=== PATIENT | male | born 1980 | race Two or more races ===

== ENCOUNTER 2023-06-17 08:25 | Inpatient (IN) | payer MEDICAID ==
[~2023-06-17] VITALS: Ht 177.8 cm; Wt 106.8 kg
[2023-06-17] MEDS ORDERED: METOCLOPRAMIDE HCL 5MG/ml INJ 2ml VIAL IV ONE (09:15)
[2023-06-17] MEDS ORDERED: SODIUM CHLORIDE 0.9% 1,000 ML IV ONE ×2 (09:15→10:30)
[2023-06-17 09:40] LABS: Basophils # (auto) 0 10 ^3/uL (0-0.2); Basophils % (auto) 0.3 % (0.0-2.0); Eosinophils # (auto) 0 10 ^3/uL (0-0.8); Eosinophils % (auto) 0.3 % (0.0-7.0); Hematocrit 51.4 % (41.0-53.0); Hemoglobin 17.1 g/dL (13.5-17.5); Lymphocytes # (auto) 1.6 10 ^3/uL (0.4-5.4); Lymphocytes % (auto) 13.5 % (10.0-50.0); Mean Corpuscular Hemoglobin 29.8 pg (28.0-32.0); Mean Corpuscular Hgb Conc. 33.2 g/dL (32.0-36.0); Monocytes # (auto) 0.7 10 ^3/uL (0-1.3); Monocytes % (auto) 5.9 % (0.0-12.0); Neutrophils # (auto) 9.4 10 ^3/uL (1.6-8.6); Nucleated Red Blood Cells % 0.2 %; Red Blood Cells 5.71 10^6/uL (4.5-5.90); Red Cell Distribution Width 13.1 % (11.8-14.3); White Blood Cell 11.7 10^3/uL (4.4-10.8)
[2023-06-17 10:10] LABS: Alanine Aminotransferase 89 U/L (7-40); Albumin 5.5 g/dL (3.2-4.8); Alkaline Phosphatase 93 U/L (46-116); Anion Gap 22 (5-15); Aspartate Aminotransferase 45 U/L (13-40); BUN/Creatinine Ratio 11.3 (10.0-20.0); Bilirubin, Total 0.9 mg/dL (0.2-1.0); Blood Urea Nitrogen 17 mg/dL (9-23); Calcium 10.2 mg/dL (8.5-10.1); Carbon Dioxide 12 mmol/L (20-30); Chloride 95 mmol/L (98-107); Glucose 377 mg/dL (74-106); Potassium 5.2 mmol/L (3.5-5.1); Sodium 129 mmol/L (136-145); Total Protein 8.2 g/dL (5.7-8.2)
[2023-06-17 10:22] LABS: Urine Epithelial Cast None Seen /hpf (<5)
[2023-06-17] MEDS ORDERED: InsuLIN REG 1unit/0.01ml Soln (100units/ml) IV ONE (10:45)
[2023-06-17] MEDS ORDERED: INSULIN LANTUS (GLARGINE) 1 /0.01ml (100units/ml) SC ONE (10:45)
[2023-06-17] MEDS ORDERED: DEXTROSE (50%) 50ML SYRG IV PRN ×2 (10:45→12:30)
[2023-06-17 11:07] LABS: Urine Bacteria NONE SEEN /hpf (None Seen); Urine Blood TRACE /uL (Negative); Urine Clarity Clear (Clear); Urine Color Yellow (Yellow); Urine Protein, UAD 2+ (Negative); Urine Specific Gravity 1.027 (1.001-1.035); Urine Urobilinogen Normal (Negative); Urine WBC 2 /hpf (0 - 3); Urine pH 5.5 (5.0-8.0)
[2023-06-17 11:30] VITALS: PULSE 119; RESP 20; O2SAT 98
[2023-06-17 11:35] LABS: Base Excess -16.5 mmol/L (-2.0-2.0)
[2023-06-17] MEDS: INSULIN DRIP 100 UNIT/100ML 100 ML IV SCH (11:58)
[2023-06-17] MEDS ORDERED: ACCU-CHEK COMFORT CURVE STRIP VI SCH (12:00)
[2023-06-17] MEDS ORDERED: ONDANSETRON HCL 4 MG/2 ML VIAL IV PRN (12:30)
[2023-06-17] MEDS ORDERED: MORPHINE SULFATE INJ 2 MG/ml SYRG IV PRN (12:30)
[2023-06-17] MEDS ORDERED: DOCUSATE SOD 100 MG CAP PO PRN (12:30)
[2023-06-17 12:54] LABS: Amphetamine Screen, Urine Neg (NEGATIVE); Barbiturate Scree,Urine Neg (NEGATIVE); Benzodiazephine Screen, Urine Neg (NEGATIVE); Cannabinoid Screen, Urine Pos (NEGATIVE); Cocaine Screen, Urine Neg (NEGATIVE); Creatinine, Urine 74.23 mg/dL (30.0-125.0); Opiate Scree,Urine Neg (NEGATIVE); Phencyclidine Screen, Urine Neg (NEGATIVE)
[2023-06-17 13:30] LABS: Chloride 103 mmol/L (98-107); Sodium 133 mmol/L (136-145)
[2023-06-17 13:31] LABS: Anion Gap 19 (5-15); Calcium 9.1 mg/dL (8.7-10.4); Carbon Dioxide 11 mmol/L (20-30)
[2023-06-17 13:32] LABS: BUN/Creatinine Ratio 7.6 (10.0-20.0); Blood Urea Nitrogen 10 mg/dL (9-23); Glucose 283 mg/dL (74-106)
[2023-06-17] MEDS: ACCU-CHEK COMFORT CURVE STRIP VI SCH ×7 (13:34→22:31)
[2023-06-17] MEDS: SODIUM CHLORIDE 0.9% 1,000 ML IV SCH ×4 (14:30→21:48)
[2023-06-17] MEDS ORDERED: SODIUM CHLORIDE 0.9% 1,000 ML IV SCH (16:30)
[2023-06-17] MEDS: METOCLOPRAMIDE HCL 5MG/ml INJ 2ml VIAL IV SCH (18:18)
[2023-06-17 18:31] LABS: Chloride 108 mmol/L (98-107); Potassium 4.2 mmol/L (3.5-5.1); Sodium 135 mmol/L (136-145)
[2023-06-17 18:32] LABS: Anion Gap 17.00001 (5-15); Calcium 8.8 mg/dL (8.7-10.4)
[2023-06-17 18:37] LABS: BUN/Creatinine Ratio 8.8 (10.0-20.0); Blood Urea Nitrogen 9 mg/dL (9-23); Glucose 241 mg/dL (74-106)
[2023-06-17 19:08] LABS: Carbon Dioxide < 10 mmol/L (20-30)
[2023-06-17] MEDS ORDERED: SODIUM BICARBONATE 8.4 % INJ 50ML VIAL IV ONE (19:15)
[2023-06-17 19:24] LABS: Base Excess -13.8 mmol/L (-2.0-2.0)
[2023-06-17 19:30] VITALS: PULSE 124; RESP 21; O2SAT 97
[2023-06-17] MEDS: D5W/SOD CHLO 0.9% 1,000 ML IV SCH (19:50)
[2023-06-17] MEDS: hydrALAZINE HCL 20 MG/ML VL IV PRN (21:11)
[2023-06-18] MEDS: ACCU-CHEK COMFORT CURVE STRIP VI SCH ×16 (00:04→22:34)
[2023-06-18] MEDS: METOCLOPRAMIDE HCL 5MG/ml INJ 2ml VIAL IV SCH ×4 (00:08→17:58)
[2023-06-18 00:40] LABS: Anion Gap 15.00001 (5-15); Chloride 117 mmol/L (98-107); Potassium 3.4 mmol/L (3.5-5.1); Sodium 142 mmol/L (136-145)
[2023-06-18 00:41] LABS: Calcium 6.8 mg/dL (8.7-10.4)
[2023-06-18 00:46] LABS: BUN/Creatinine Ratio 7.8 (10.0-20.0); Blood Urea Nitrogen 6 mg/dL (9-23); Glucose 290 mg/dL (74-106)
[2023-06-18 00:47] LABS: Carbon Dioxide < 10 mmol/L (20-30)
[2023-06-18] MEDS: SODIUM CHLORIDE 0.9% 1,000 ML IV SCH ×3 (04:26→21:35)
[2023-06-18] MEDS: D5W/SOD CHLO 0.9% 1,000 ML IV SCH (05:28)
[2023-06-18 05:42] LABS: Hematocrit 47.9 % (41.0-53.0); Hemoglobin 16.2 g/dL (13.5-17.5); Mean Corpuscular Hemoglobin 29.9 pg (28.0-32.0); Mean Corpuscular Hgb Conc. 33.9 g/dL (32.0-36.0); Mean Corpuscular Volume 88.3 fL (80.0-100.0); Red Blood Cells 5.42 10^6/uL (4.5-5.90); Red Cell Distribution Width 13.3 % (11.8-14.3); White Blood Cell 13.1 10^3/uL (4.4-10.8)
[2023-06-18 05:47] LABS: Basophils % (manual) 0 (0.0-2.0); Blast Cells 0; Eosinophils % (manual) 0 (0-7); Metamyelocytes % 0; Reactive Lymphocytes 0
[2023-06-18 05:50] LABS: Alanine Aminotransferase 59 U/L (7-40); Albumin 4.7 g/dL (3.2-4.8); Alkaline Phosphatase 74 U/L (46-116); Anion Gap 17.00001 (5-15); Aspartate Aminotransferase 24 U/L (13-40); BUN/Creatinine Ratio 8.6 (10.0-20.0); Blood Urea Nitrogen 8 mg/dL (9-23); Calcium 8.9 mg/dL (8.7-10.4); Chloride 112 mmol/L (98-107); Glucose 219 mg/dL (74-106); Potassium 3.8 mmol/L (3.5-5.1); Sodium 139 mmol/L (136-145)
[2023-06-18 05:51] LABS: Bilirubin, Total 0.9 mg/dL (0.2-1.0); Total Protein 7.5 g/dL (5.7-8.2)
[2023-06-18 06:01] LABS: Carbon Dioxide < 10 mmol/L (20-30)
[2023-06-18 08:00] VITALS: PULSE 115; RESP 22; O2SAT 98
[2023-06-18] MEDS: PANTOPRAZOLE 40 MG/10 ML VIAL INJ IV SCH (09:39)
[2023-06-18] MEDS: INSULIN LANTUS (GLARGINE) 1 /0.01ml (100units/ml) SC SCH (09:40)
[2023-06-18] MEDS: hydrALAZINE HCL 20 MG/ML VL IV PRN (09:41)
[2023-06-18] MEDS ORDERED: cefTRIAXone 1GM/50ML D5W 50 ML IV ONE (10:45)
[2023-06-18] MEDS: INSULIN DRIP 100 UNIT/100ML 100 ML IV SCH (10:56)
[2023-06-18 11:08] LABS: Lipase 41 U/L (12-53)
[2023-06-18 11:09] LABS: Amylase 45 U/L (30-118)
[2023-06-18 14:10] LABS: Band Neutrophils % (manual) 4; Lymphocytes % (manual) 8 (10.0-50.0); Monocytes % (manual) 7 (0-12); Myelocytes % 1; Promyelocytes % 1
[2023-06-18 14:11] LABS: Platelet Estimate Adequate
[2023-06-18] MEDS ORDERED: LABETALOL HCL 5 MG/ML 4ML SYRINGE IV PRN (18:45)
[2023-06-18 19:20] VITALS: PULSE 108; RESP 20; O2SAT 99
[2023-06-18 21:21] LABS: Chloride 114 mmol/L (98-107); Potassium 4.1 mmol/L (3.5-5.1); Sodium 140 mmol/L (136-145)
[2023-06-18 21:22] LABS: Anion Gap 13 (5-15); Calcium 8.8 mg/dL (8.7-10.4); Carbon Dioxide 13 mmol/L (20-30)
[2023-06-18] MEDS: METOPROLOL TARTRATE 25 MG TAB PO SCH (21:23)
[2023-06-18 21:27] LABS: BUN/Creatinine Ratio 5.8 (10.0-20.0); Blood Urea Nitrogen 5 mg/dL (9-23); Glucose 158 mg/dL (74-106)
[2023-06-19] MEDS: ACCU-CHEK COMFORT CURVE STRIP VI SCH ×8 (00:06→16:29)
[2023-06-19] MEDS: SODIUM CHLORIDE 0.9% 1,000 ML IV SCH (03:50)
[2023-06-19] MEDS: METOCLOPRAMIDE HCL 5MG/ml INJ 2ml VIAL IV SCH ×3 (06:00→11:53)
[2023-06-19 06:01] LABS: Basophils # (auto) 0 10 ^3/uL (0-0.2); Basophils % (auto) 0.2 % (0.0-2.0); Eosinophils # (auto) 0 10 ^3/uL (0-0.8); Eosinophils % (auto) 0.4 % (0.0-7.0); Hematocrit 41.3 % (41.0-53.0); Hemoglobin 13.8 g/dL (13.5-17.5); Lymphocytes # (auto) 1.4 10 ^3/uL (0.4-5.4); Lymphocytes % (auto) 14.9 % (10.0-50.0); Mean Corpuscular Hemoglobin 30.4 pg (28.0-32.0); Mean Corpuscular Hgb Conc. 33.3 g/dL (32.0-36.0); Mean Corpuscular Volume 91.3 fL (80.0-100.0); Monocytes # (auto) 0.8 10 ^3/uL (0-1.3); Monocytes % (auto) 8.7 % (0.0-12.0); Neutrophils % (auto) 75.8 % (37.0-80.0); Nucleated Red Blood Cells % 0.1 %; Red Blood Cells 4.52 10^6/uL (4.5-5.90); Red Cell Distribution Width 13.9 % (11.8-14.3); White Blood Cell 9.3 10^3/uL (4.4-10.8)
[2023-06-19 06:12] LABS: Alanine Aminotransferase 46 U/L (7-40); Albumin 3.5 g/dL (3.2-4.8); Alkaline Phosphatase 57 U/L (46-116); Anion Gap 14 (5-15); Aspartate Aminotransferase 35 U/L (13-40); Calcium 7.6 mg/dL (8.7-10.4); Carbon Dioxide 12 mmol/L (20-30); Chloride 116 mmol/L (98-107); Glucose 160 mg/dL (74-106); Magnesium 1.8 mg/dL (1.6-2.6); Potassium 3.3 mmol/L (3.5-5.1); Sodium 142 mmol/L (136-145)
[2023-06-19 06:13] LABS: Bilirubin, Total 0.9 mg/dL (0.2-1.0); Total Protein 5.7 g/dL (5.7-8.2)
[2023-06-19 06:19] LABS: Blood Urea Nitrogen < 5 mg/dL (9-23)
[2023-06-19] MEDS ORDERED: DEXTROSE (50%) 50ML SYRG IV PRN (07:30)
[2023-06-19 07:52] VITALS: PULSE 83; RESP 17; O2SAT 98
[2023-06-19 08:00] VITALS: TEMP 98.9
[2023-06-19] MEDS: InsuLIN REG 1unit/0.01ml Soln (100units/ml) SC SCH ×3 (08:19→16:32)
[2023-06-19] MEDS ORDERED: POTASSIUM EFFERVESENT TAB 25 MEQ PO ONE (09:00)
[2023-06-19] MEDS ORDERED: cefTRIAXone 1GM/50ML D5W 50 ML IV SCH (09:00)
[2023-06-19] MEDS: PANTOPRAZOLE 40 MG/10 ML VIAL INJ IV SCH (09:41)
[2023-06-19] MEDS: METOPROLOL TARTRATE 25 MG TAB PO SCH (09:42)
[2023-06-19] MEDS: INSULIN LANTUS (GLARGINE) 1 /0.01ml (100units/ml) SC SCH (09:51)
[2023-06-19] MEDS ORDERED: METF-370 PO (10:19)
[2023-06-19] MEDS ORDERED: INSU1INJ26 SC (10:19)
[2023-06-19 13:44] VITALS: BP 159/95; PULSE 86; PULSE 95; RESP 18; O2SAT 96
== END 2023-06-19 17:27 | disposition home or self-care (01) | DRG 420 ==
LOC: ER 08:25 → TELE 12:26 → TELE-WESTW 06-19 12:31
PROVIDERS: ADMIT Internal Medicine Pulmonary Disease; ATTEND Emergency Medicine
DX: E11.10 Type 2 diabetes mellitus with ketoacidosis without coma (principal); N17.0 Acute kidney failure with tubular necrosis; E87.1 Hypo-osmolality and hyponatremia; E86.0 Dehydration; I10 Essential (primary) hypertension; R80.9 Proteinuria, unspecified; F12.10 Cannabis abuse, uncomplicated; R00.0 Tachycardia, unspecified; Z79.4 Long term (current) use of insulin; E87.21 Acute metabolic acidosis
CPT/HCPCS: 36415; 36600; 71045; 74176; 80048; 80053; 80307; 81001; 82010; 82150; 82570; 82805; 82962; 83036; 83690; 83735; 83930; 83935; 84100; 84300; 84443; 85007; 85025; 85027; 87086; 96361; 96374; 96375; C9113; G0378; J1815; J2405

== ENCOUNTER 2023-06-24 18:02 | Inpatient (IN) | payer MEDICAID ==
[~2023-06-24] VITALS: Ht 177.8 cm; Wt 101.2 kg
[~2023-06-24 18:02] MED LIST: INSU1INJ26 SC; METF-370 PO
[2023-06-24] MEDS: SODIUM CHLORIDE 0.9% 1,000 ML IV ONE (18:30)
[2023-06-24 18:42] VITALS: PULSE 122; RESP 24; O2SAT 99
[2023-06-24] MEDS: SODIUM CHLORIDE 0.9% 3,200 ML IV ONE (18:42)
[2023-06-24] MEDS: VANCOMYCIN 1GM/200ML 200 ML IV ONE (19:10)
[2023-06-24 19:19] LABS: Hematocrit 40.1 % (41.0-53.0); Hemoglobin 13.6 g/dL (13.5-17.5); Mean Corpuscular Hemoglobin 29.7 pg (28.0-32.0); Mean Corpuscular Volume 87.5 fL (80.0-100.0); Red Blood Cells 4.58 10^6/uL (4.5-5.90); White Blood Cell 19.7 10^3/uL (4.4-10.8)
[2023-06-24 19:29] LABS: Basophils % (manual) 0 (0.0-2.0); Blast Cells 0; Eosinophils % (manual) 0 (0-7); Metamyelocytes % 0; Myelocytes % 0; Promyelocytes % 0; Reactive Lymphocytes 0
[2023-06-24 19:30] VITALS: PULSE 111; RESP 14; O2SAT 99
[2023-06-24 19:34] LABS: Alanine Aminotransferase 35 U/L (7-40); Albumin 4.1 g/dL (3.2-4.8); Alkaline Phosphatase 90 U/L (46-116); Anion Gap 16 (5-15); Aspartate Aminotransferase 21 U/L (13-40); BUN/Creatinine Ratio 9.5 (10.0-20.0); Blood Urea Nitrogen 16 mg/dL (9-23); Calcium 9.3 mg/dL (8.5-10.1); Carbon Dioxide 20 mmol/L (20-30); Potassium 3.2 mmol/L (3.5-5.1)
[2023-06-24 19:35] LABS: Chloride 93 mmol/L (98-107); Glucose 310 mg/dL (74-106); Sodium 129 mmol/L (136-145)
[2023-06-24 19:38] LABS: Lactic Acid w/Reflex 3.3 mmol/L (0.4-2.0)
[2023-06-24 19:49] LABS: Band Neutrophils % (manual) 26; Lymphocytes % (manual) 9 (10.0-50.0); Monocytes % (manual) 5 (0-12)
[2023-06-24] MEDS: PIPERACILLIN-TAZOB 3.375GM 100 ML IV ONE (19:49)
[2023-06-24 19:50] LABS: Platelet Estimate Adequate
[2023-06-24] MEDS: ACETAMINOPHEN 325 MG TAB PO ONE (19:55)
[2023-06-24] MEDS: InsuLIN REG 1unit/0.01ml Soln (100units/ml) IV ONE (20:14)
[2023-06-24] MEDS ORDERED: VANCOMYCIN PER PHARMACY 0 MG IV SCH ×2 (21:15→21:30)
[2023-06-24] MEDS ORDERED: DEXTROSE (50%) 50ML SYRG IV PRN (21:15)
[2023-06-24] MEDS ORDERED: ONDANSETRON HCL 4 MG/2 ML VIAL IV PRN (21:15)
[2023-06-24] MEDS ORDERED: DOCUSATE SOD 100 MG CAP PO PRN (21:15)
[2023-06-24] MEDS: SODIUM CHLORIDE 0.9% 1,000 ML IV SCH (21:27)
[2023-06-24] MEDS: PIPERACILLIN-TAZOB 3.375GM 100 ML IV SCH (21:27)
[2023-06-24] MEDS ORDERED: NITROGLYCERIN 0.4 MG SL TAB SL PRN (23:30)
[2023-06-24] MEDS ORDERED: MORPHINE SULFATE INJ 2 MG/ml SYRG IV PRN (23:30)
[2023-06-25] VITALS (8 sets, daily range): BP systolic 96–130; BP diastolic 54–67; PULSE 71–123; RESP 18–21; TEMP 37.5; O2SAT 93–97
[2023-06-25] MEDS: InsuLIN REG 1unit/0.01ml Soln (100units/ml) SC SCH (00:21)
[2023-06-25] MEDS: ACCU-CHEK COMFORT CURVE STRIP VI SCH (00:22)
[2023-06-25] MEDS ORDERED: LISI20TA56 PO (03:12)
[2023-06-25] MEDS ORDERED: CHOL20007 PO (03:12)
[2023-06-25] MEDS: VANCOMYCIN 1GM/200ML 200 ML IV SCH (10:00)
[2023-06-25] MEDS: HEPARIN SODIUM (PORCINE) 5000 UNITS/ML 1ML VIAL SC SCH (10:00)
[2023-06-25] MEDS: HYDROcodone-ACET 5/325MG TAB PO PRN (10:20)
[2023-06-25 11:26] LABS: Hematocrit 35.1 % (41.0-53.0); Hemoglobin 11.9 g/dL (13.5-17.5); Mean Corpuscular Hemoglobin 29.6 pg (28.0-32.0); Mean Corpuscular Volume 87.3 fL (80.0-100.0); Red Blood Cells 4.02 10^6/uL (4.5-5.90); Red Cell Distribution Width 13.1 % (11.8-14.3); White Blood Cell 15.2 10^3/uL (4.4-10.8)
[2023-06-25 11:38] LABS: Alanine Aminotransferase 39 U/L (7-40); Albumin 3.3 g/dL (3.2-4.8); Alkaline Phosphatase 76 U/L (46-116); Anion Gap 10 (5-15); Aspartate Aminotransferase 42 U/L (13-40); Bilirubin, Total 0.5 mg/dL (0.2-1.0); Blood Urea Nitrogen 8 mg/dL (9-23); Calcium 8.2 mg/dL (8.5-10.1); Carbon Dioxide 22 mmol/L (20-30); Chloride 96 mmol/L (98-107); Glucose 292 mg/dL (74-106); Sodium 128 mmol/L (136-145); Total Protein 5.7 g/dL (5.7-8.2)
[2023-06-25 11:42] LABS: Basophils % (manual) 0 (0.0-2.0); Blast Cells 0; Eosinophils % (manual) 0 (0-7); Metamyelocytes % 0; Myelocytes % 0; Promyelocytes % 0; Reactive Lymphocytes 0
[2023-06-25 11:45] LABS: Potassium 2.3 mmol/L (3.5-5.1)
[2023-06-25 12:43] LABS: Band Neutrophils % (manual) 11; Lymphocytes % (manual) 5 (10.0-50.0); Monocytes % (manual) 6 (0-12)
[2023-06-25 12:44] LABS: Platelet Estimate Adequate; RBC Morphology Normal
[2023-06-25 12:45] LABS: Urine Amorphous Crystal FEW /hpf (None Seen); Urine Bacteria FEW /hpf (None Seen); Urine Blood Negative /uL (Negative); Urine Clarity HAZY (Clear); Urine Color Yellow (Yellow); Urine Protein, UAD 1+ (Negative); Urine Specific Gravity 1.021 (1.001-1.035); Urine WBC 3 /hpf (0 - 3); Urine pH 5.5 (5.0-8.0)
[2023-06-25] MEDS: POTASSIUM CHL 20MEQ/100ML 100 ML IV SCH (14:12)
[2023-06-25] MEDS: ACETAMINOPHEN 325 MG TAB PO PRN (17:28)
[2023-06-25] MEDS: INSULIN LANTUS (GLARGINE) 1 /0.01ml (100units/ml) SC SCH (22:26)
[2023-06-26] VITALS (7 sets, daily range): BP systolic 92–106; BP diastolic 54–63; PULSE 85–107; RESP 18–20; TEMP 97.8–99.4; O2SAT 92–97
[2023-06-26 05:33] LABS: Basophils # (auto) 0 10 ^3/uL (0-0.2); Basophils % (auto) 0.1 % (0.0-2.0); Eosinophils # (auto) 0 10 ^3/uL (0-0.8); Eosinophils % (auto) 0.2 % (0.0-7.0); Hematocrit 34.6 % (41.0-53.0); Hemoglobin 11.8 g/dL (13.5-17.5); Lymphocytes % (auto) 7.7 % (10.0-50.0); Mean Corpuscular Hemoglobin 29.6 pg (28.0-32.0); Mean Corpuscular Hgb Conc. 34.1 g/dL (32.0-36.0); Mean Corpuscular Volume 86.8 fL (80.0-100.0); Monocytes # (auto) 0.8 10 ^3/uL (0-1.3); Monocytes % (auto) 6.1 % (0.0-12.0); Neutrophils # (auto) 11.2 10 ^3/uL (1.6-8.6); Neutrophils % (auto) 85.9 % (37.0-80.0); Nucleated Red Blood Cells % 0.1 %; Red Blood Cells 3.99 10^6/uL (4.5-5.90); Red Cell Distribution Width 13.4 % (11.8-14.3)
[2023-06-26 05:44] LABS: Calcium 7.4 mg/dL (8.7-10.4); Chloride 98 mmol/L (98-107); Potassium 2.9 mmol/L (3.5-5.1); Sodium 132 mmol/L (136-145)
[2023-06-26 05:45] LABS: Anion Gap 8 (5-15); Carbon Dioxide 26 mmol/L (20-30)
[2023-06-26 05:50] LABS: BUN/Creatinine Ratio 12.3 (10.0-20.0); Blood Urea Nitrogen 10 mg/dL (9-23)
[2023-06-26 05:54] LABS: Glucose 182 mg/dL (74-106)
[2023-06-26] MEDS: POTASSIUM CHL 20MEQ/100ML 100 ML IV SCH ×2 (15:22→18:06)
[2023-06-26] MEDS: VANCOMYCIN 1GM/200ML 200 ML IV SCH (15:22)
[2023-06-26] MEDS: HYDROmorphone HCL 2 MG/ML VL/or syr IV PRN (16:06)
[2023-06-26] MEDS: CLINDAMYCIN 600MG IV 50 ML IV SCH (21:25)
[2023-06-27] VITALS (9 sets, daily range): BP systolic 100–117; BP diastolic 60–76; PULSE 89–104; RESP 15–20; TEMP 98–100.3; O2SAT 92–100
[2023-06-27 07:01] LABS: Anion Gap 8 (5-15); Carbon Dioxide 28 mmol/L (20-30); Chloride 95 mmol/L (98-107); Potassium 2.7 mmol/L (3.5-5.1); Sodium 131 mmol/L (136-145)
[2023-06-27 07:02] LABS: Calcium 7.6 mg/dL (8.5-10.1)
[2023-06-27 07:07] LABS: BUN/Creatinine Ratio 6.8 (10.0-20.0); Blood Urea Nitrogen 5 mg/dL (9-23); Glucose 137 mg/dL (74-106)
[2023-06-27 07:16] LABS: Basophils # (auto) 0 10 ^3/uL (0-0.2); Basophils % (auto) 0.2 % (0.0-2.0); Eosinophils # (auto) 0 10 ^3/uL (0-0.8); Eosinophils % (auto) 0.5 % (0.0-7.0); Hematocrit 33.7 % (41.0-53.0); Hemoglobin 11.6 g/dL (13.5-17.5); Lymphocytes # (auto) 1.1 10 ^3/uL (0.4-5.4); Lymphocytes % (auto) 10.3 % (10.0-50.0); Mean Corpuscular Hemoglobin 30.2 pg (28.0-32.0); Mean Corpuscular Hgb Conc. 34.5 g/dL (32.0-36.0); Mean Corpuscular Volume 87.4 fL (80.0-100.0); Monocytes # (auto) 0.8 10 ^3/uL (0-1.3); Monocytes % (auto) 7.5 % (0.0-12.0); Neutrophils # (auto) 8.3 10 ^3/uL (1.6-8.6); Neutrophils % (auto) 81.5 % (37.0-80.0); Red Blood Cells 3.86 10^6/uL (4.5-5.90); Red Cell Distribution Width 13.2 % (11.8-14.3); White Blood Cell 10.2 10^3/uL (4.4-10.8)
[2023-06-27 11:18] LABS: INR 1.12 (0.9-1.15); Partial Thromboplastin Time 33.3 SEC (24.5-34.5); Prothrombin Time 11.7 sec (9.3-11.8)
[2023-06-27] MEDS: POTASSIUM CHL 20MEQ/100ML 100 ML IV SCH (12:23)
[2023-06-27] MEDS: ACCU-CHEK COMFORT CURVE STRIP VI ONE (15:45)
[2023-06-27] MEDS ORDERED: HYDROmorphone HCL 2 MG/ML VL/or syr IV PRN ×2 (15:45)
[2023-06-27] MEDS ORDERED: METOCLOPRAMIDE HCL 5MG/ml INJ 2ml VIAL IV PRN (15:45)
[2023-06-27] MEDS ORDERED: MORPHINE SULFATE INJ 2 MG/ml SYRG IV PRN (15:45)
[2023-06-27] MEDS ORDERED: SODIUM CHLORIDE LOCK 10 ML ONE (15:54)
[2023-06-27] MEDS ORDERED: fentaNYL CITRATE 100 MCG/2 ML VL ONE ×2 (15:54→18:02)
[2023-06-27] MEDS ORDERED: MIDAZOLAM HCL 2MG/2ML 2ml VIAL (1mg/ml) ONE (15:54)
[2023-06-27] MEDS ORDERED: MEPERIDINE HCL (50 MG/ML) 1 ML VIAL ONE (15:54)
[2023-06-27] MEDS ORDERED: KETAMINE 50mg/ML 1ml syringe ONE ×2 (15:54→17:57)
[2023-06-27] MEDS ORDERED: PROPOFOL 10 MG/ML 20 ML IV ONE (15:55)
[2023-06-27] MEDS ORDERED: ONDANSETRON HCL 4 MG/2 ML VIAL ONE (15:55)
[2023-06-27 16:13] LABS: Chloride 97 mmol/L (98-107); Potassium 2.6 mmol/L (3.5-5.1); Sodium 131 mmol/L (136-145)
[2023-06-27 16:14] LABS: Anion Gap 6 (5-15); Calcium 7.7 mg/dL (8.7-10.4); Carbon Dioxide 28 mmol/L (20-30)
[2023-06-27 16:19] LABS: Glucose 148 mg/dL (74-106)
[2023-06-27 16:26] LABS: BUN/Creatinine Ratio 7.7 (10.0-20.0); Blood Urea Nitrogen < 5 mg/dL (9-23)
[2023-06-28] VITALS (9 sets, daily range): BP systolic 104–126; BP diastolic 56–65; PULSE 99–105; RESP 20–22; TEMP 99.4–101.5; O2SAT 93–95
[2023-06-28 03:58] LABS: Basophils # (auto) 0 10 ^3/uL (0-0.2); Basophils % (auto) 0.3 % (0.0-2.0); Eosinophils # (auto) 0 10 ^3/uL (0-0.8); Eosinophils % (auto) 0.5 % (0.0-7.0); Hematocrit 33.7 % (41.0-53.0); Hemoglobin 11.6 g/dL (13.5-17.5); Lymphocytes # (auto) 1.2 10 ^3/uL (0.4-5.4); Lymphocytes % (auto) 12.1 % (10.0-50.0); Mean Corpuscular Hemoglobin 30.2 pg (28.0-32.0); Mean Corpuscular Hgb Conc. 34.5 g/dL (32.0-36.0); Mean Corpuscular Volume 87.7 fL (80.0-100.0); Monocytes # (auto) 0.9 10 ^3/uL (0-1.3); Monocytes % (auto) 8.9 % (0.0-12.0); Neutrophils # (auto) 7.6 10 ^3/uL (1.6-8.6); Neutrophils % (auto) 78.2 % (37.0-80.0); Red Blood Cells 3.84 10^6/uL (4.5-5.90); Red Cell Distribution Width 13.3 % (11.8-14.3); White Blood Cell 9.7 10^3/uL (4.4-10.8)
[2023-06-28 04:05] LABS: Anion Gap 6 (5-15); Carbon Dioxide 28 mmol/L (20-30); Chloride 100 mmol/L (98-107); Potassium 2.7 mmol/L (3.5-5.1); Sodium 134 mmol/L (136-145)
[2023-06-28 04:06] LABS: Calcium 7.8 mg/dL (8.5-10.1)
[2023-06-28 04:11] LABS: Glucose 140 mg/dL (74-106)
[2023-06-28 04:22] LABS: BUN/Creatinine Ratio 6.6 (10.0-20.0); Blood Urea Nitrogen < 5 mg/dL (9-23)
[2023-06-28] MEDS: AMPICILLIN & SULBACTAM SODIUM 3 GM in SODIUM CHL 0.9% 100 ML IV SCH (20:48)
[2023-06-29 05:00] VITALS: BP 108/65; PULSE 107; RESP 18; TEMP 99.9; O2SAT 94
[2023-06-29 08:00] VITALS: BP 101/58; PULSE 92; PULSE 94; RESP 20; TEMP 98.2; O2SAT 98
[2023-06-29 13:34] VITALS: BP 128/69; PULSE 95; RESP 20; TEMP 98.5; O2SAT 97
[2023-06-29 16:00] VITALS: BP 121/68; PULSE 91; RESP 20; TEMP 98.9; O2SAT 97
[2023-06-29 20:00] VITALS: PULSE 105; O2SAT 95
[2023-06-29 22:00] VITALS: BP 104/56; PULSE 109; RESP 20; TEMP 98.9; O2SAT 96
[2023-06-30] VITALS (7 sets, daily range): BP systolic 113–133; BP diastolic 68–80; PULSE 86–97; RESP 16–20; TEMP 98.2–99.2; O2SAT 92–98
[2023-06-30 06:25] LABS: Anion Gap 8 (5-15); Carbon Dioxide 27 mmol/L (20-30); Chloride 97 mmol/L (98-107); Potassium 2.7 mmol/L (3.5-5.1); Sodium 132 mmol/L (136-145)
[2023-06-30 06:26] LABS: Calcium 7.7 mg/dL (8.7-10.4)
[2023-06-30 06:31] LABS: Glucose 124 mg/dL (74-106)
[2023-06-30 06:33] LABS: Hematocrit 31.5 % (41.0-53.0); Hemoglobin 10.5 g/dL (13.5-17.5); Mean Corpuscular Hemoglobin 29.1 pg (28.0-32.0); Mean Corpuscular Hgb Conc. 33.4 g/dL (32.0-36.0); Mean Corpuscular Volume 87.4 fL (80.0-100.0); Red Blood Cells 3.61 10^6/uL (4.5-5.90); Red Cell Distribution Width 13.8 % (11.8-14.3); White Blood Cell 10.2 10^3/uL (4.4-10.8)
[2023-06-30 06:34] LABS: BUN/Creatinine Ratio 7.8 (10.0-20.0); Blood Urea Nitrogen < 5 mg/dL (9-23)
[2023-06-30 06:38] LABS: Basophils % (manual) 0 (0.0-2.0); Blast Cells 0; Eosinophils % (manual) 0 (0-7); Myelocytes % 0; Promyelocytes % 0; Reactive Lymphocytes 0
[2023-06-30 08:47] LABS: Band Neutrophils % (manual) 14; Lymphocytes % (manual) 25 (10.0-50.0); Metamyelocytes % 3; Monocytes % (manual) 6 (0-12)
[2023-06-30 08:48] LABS: Platelet Estimate Adequate
[2023-07-01] VITALS (8 sets, daily range): BP systolic 107–128; BP diastolic 45–78; PULSE 72–101; RESP 15–18; TEMP 97.9–98.8; O2SAT 91–96
[2023-07-01 15:05] LABS: Chloride 100 mmol/L (98-107); Potassium 3.3 mmol/L (3.5-5.1); Sodium 133 mmol/L (136-145)
[2023-07-01 15:06] LABS: Anion Gap 8 (5-15); Carbon Dioxide 25 mmol/L (20-30)
[2023-07-01 15:07] LABS: Calcium 8.2 mg/dL (8.7-10.4)
[2023-07-01 15:11] LABS: Glucose 152 mg/dL (74-106)
[2023-07-01 15:12] LABS: BUN/Creatinine Ratio 9.4 (10.0-20.0); Blood Urea Nitrogen 6 mg/dL (9-23); Magnesium 1.8 mg/dL (1.6-2.6)
[2023-07-01] MEDS ORDERED: DEXTROSE (50%) 50ML SYRG IV PRN (16:45)
[2023-07-01] MEDS: InsuLIN REG 1unit/0.01ml Soln (100units/ml) SC SCH ×2 (17:00→21:45)
[2023-07-01] MEDS: ACCU-CHEK COMFORT CURVE STRIP VI SCH (17:17)
[2023-07-01] MEDS: SOD CHL 0.9%/ KCL 40MEQ 1,000 ML IV ONE (19:26)
[2023-07-02] VITALS (8 sets, daily range): BP systolic 115–137; BP diastolic 68–86; PULSE 74–91; RESP 16–18; TEMP 98–99; O2SAT 93–98
[2023-07-02 04:42] LABS: Basophils # (auto) 0.1 10 ^3/uL (0-0.2); Basophils % (auto) 0.4 % (0.0-2.0); Eosinophils # (auto) 0.1 10 ^3/uL (0-0.8); Eosinophils % (auto) 0.5 % (0.0-7.0); Lymphocytes # (auto) 1.5 10 ^3/uL (0.4-5.4); Lymphocytes % (auto) 11.7 % (10.0-50.0); Mean Corpuscular Hemoglobin 29.8 pg (28.0-32.0); Mean Corpuscular Hgb Conc. 33.4 g/dL (32.0-36.0); Mean Corpuscular Volume 89.4 fL (80.0-100.0); Monocytes # (auto) 0.7 10 ^3/uL (0-1.3); Monocytes % (auto) 5.8 % (0.0-12.0); Neutrophils # (auto) 10.6 10 ^3/uL (1.6-8.6); Neutrophils % (auto) 81.6 % (37.0-80.0); Nucleated Red Blood Cells % 0.1 %; Red Blood Cells 3.69 10^6/uL (4.5-5.90); Red Cell Distribution Width 13.7 % (11.8-14.3)
[2023-07-02 04:46] LABS: Chloride 104 mmol/L (98-107); Potassium 3.5 mmol/L (3.5-5.1); Sodium 135 mmol/L (136-145)
[2023-07-02 04:47] LABS: Anion Gap 8 (5-15); Calcium 7.9 mg/dL (8.7-10.4); Carbon Dioxide 23 mmol/L (20-30)
[2023-07-02 04:52] LABS: Glucose 120 mg/dL (74-106)
[2023-07-02 05:31] LABS: BUN/Creatinine Ratio 8.8 (10.0-20.0); Blood Urea Nitrogen < 5 mg/dL (9-23)
[2023-07-02] MEDS: VANCOMYCIN 1GM/200ML 200 ML IV SCH (06:41)
[2023-07-03 05:00] VITALS: BP 122/87; PULSE 85; RESP 18; TEMP 98; O2SAT 94
[2023-07-03 06:59] LABS: Basophils # (auto) 0 10 ^3/uL (0-0.2); Basophils % (auto) 0.3 % (0.0-2.0); Eosinophils # (auto) 0.1 10 ^3/uL (0-0.8); Eosinophils % (auto) 1.1 % (0.0-7.0); Hematocrit 34.3 % (41.0-53.0); Hemoglobin 11.4 g/dL (13.5-17.5); Lymphocytes # (auto) 1.6 10 ^3/uL (0.4-5.4); Lymphocytes % (auto) 18.6 % (10.0-50.0); Mean Corpuscular Hemoglobin 29.9 pg (28.0-32.0); Mean Corpuscular Hgb Conc. 33.3 g/dL (32.0-36.0); Mean Corpuscular Volume 89.8 fL (80.0-100.0); Monocytes # (auto) 0.5 10 ^3/uL (0-1.3); Monocytes % (auto) 6.1 % (0.0-12.0); Neutrophils # (auto) 6.2 10 ^3/uL (1.6-8.6); Neutrophils % (auto) 73.9 % (37.0-80.0); Nucleated Red Blood Cells % 0.1 %; Red Blood Cells 3.82 10^6/uL (4.5-5.90); Red Cell Distribution Width 13.5 % (11.8-14.3); White Blood Cell 8.5 10^3/uL (4.4-10.8)
[2023-07-03 07:06] LABS: Chloride 106 mmol/L (98-107); Sodium 136 mmol/L (136-145)
[2023-07-03 07:07] LABS: Anion Gap 8 (5-15); Carbon Dioxide 22 mmol/L (20-30)
[2023-07-03 07:08] LABS: Calcium 8.4 mg/dL (8.5-10.1)
[2023-07-03 07:12] LABS: Glucose 115 mg/dL (74-106)
[2023-07-03 07:13] LABS: BUN/Creatinine Ratio 8.2 (10.0-20.0); Blood Urea Nitrogen 5 mg/dL (9-23)
[2023-07-03 08:00] VITALS: BP 149/91; PULSE 72; PULSE 88; RESP 18; O2SAT 96
[2023-07-03 17:00] VITALS: BP 134/76; PULSE 86; RESP 18; TEMP 97.8; O2SAT 95
[2023-07-03 20:00] VITALS: PULSE 89; RESP 18; O2SAT 97
[2023-07-03 22:00] VITALS: BP 121/72; PULSE 75; RESP 18; TEMP 98.1; O2SAT 97
[2023-07-04] VITALS (7 sets, daily range): BP systolic 120–144; BP diastolic 71–87; PULSE 86–101; RESP 18–20; TEMP 98–98.1; O2SAT 95–97
[2023-07-04 05:20] LABS: White Blood Cell 7.4 10^3/uL (4.4-10.8)
[2023-07-04 05:22] LABS: Hematocrit 36.9 % (41.0-53.0); Hemoglobin 12.4 g/dL (13.5-17.5); Mean Corpuscular Hemoglobin 29.7 pg (28.0-32.0); Mean Corpuscular Hgb Conc. 33.5 g/dL (32.0-36.0); Mean Corpuscular Volume 88.8 fL (80.0-100.0); Red Blood Cells 4.16 10^6/uL (4.5-5.90); Red Cell Distribution Width 13.5 % (11.8-14.3)
[2023-07-04 05:26] LABS: Anion Gap 8 (5-15); Carbon Dioxide 23 mmol/L (20-30); Chloride 106 mmol/L (98-107); Sodium 137 mmol/L (136-145)
[2023-07-04 05:27] LABS: Calcium 8.7 mg/dL (8.7-10.4)
[2023-07-04 05:32] LABS: BUN/Creatinine Ratio 11.1 (10.0-20.0); Blood Urea Nitrogen 7 mg/dL (9-23); Glucose 130 mg/dL (74-106)
[2023-07-04 05:42] LABS: Basophils % (manual) 0 (0.0-2.0); Blast Cells 0; Reactive Lymphocytes 0
[2023-07-04 08:41] LABS: Band Neutrophils % (manual) 7; Eosinophils % (manual) 2 (0-7); Lymphocytes % (manual) 22 (10.0-50.0); Metamyelocytes % 3; Monocytes % (manual) 6 (0-12); Myelocytes % 2; Promyelocytes % 2
[2023-07-04 08:42] LABS: Giant Platelets Few; Platelet Estimate Increased
[2023-07-04] MEDS: ceFAZolin 1GM/50ML 50 ML IV ONE (16:38)
[2023-07-04] MEDS: POTASSIUM CHL 20MEQ/100ML 100 ML IV ONE (16:39)
[2023-07-04] MEDS: ceFAZolin 1GM VL ONE (16:39)
[2023-07-05] VITALS (8 sets, daily range): BP systolic 113–137; BP diastolic 69–86; PULSE 57–106; RESP 18–21; TEMP 97.3–98.5; O2SAT 90–100
[2023-07-05 06:39] LABS: Anion Gap 9 (5-15); Carbon Dioxide 20 mmol/L (20-30); Chloride 106 mmol/L (98-107); Potassium 4.2 mmol/L (3.5-5.1); Sodium 135 mmol/L (136-145)
[2023-07-05 06:40] LABS: Calcium 8.6 mg/dL (8.7-10.4)
[2023-07-05 06:42] LABS: INR 1.09 (0.9-1.15); Partial Thromboplastin Time 32.2 SEC (24.5-34.5); Prothrombin Time 11.4 sec (9.3-11.8)
[2023-07-05 06:45] LABS: BUN/Creatinine Ratio 9.5 (10.0-20.0); Blood Urea Nitrogen 6 mg/dL (9-23); Glucose 138 mg/dL (74-106)
[2023-07-05 06:52] LABS: Hematocrit 36.9 % (41.0-53.0); Hemoglobin 12.3 g/dL (13.5-17.5); Mean Corpuscular Hemoglobin 30.3 pg (28.0-32.0); Mean Corpuscular Hgb Conc. 33.4 g/dL (32.0-36.0); Mean Corpuscular Volume 90.5 fL (80.0-100.0); Red Blood Cells 4.07 10^6/uL (4.5-5.90); Red Cell Distribution Width 13.4 % (11.8-14.3); White Blood Cell 7.8 10^3/uL (4.4-10.8)
[2023-07-05 07:07] LABS: Basophils % (manual) 0 (0.0-2.0); Blast Cells 0; Promyelocytes % 0; Reactive Lymphocytes 0
[2023-07-05 09:33] LABS: Band Neutrophils % (manual) 5; Eosinophils % (manual) 1 (0-7); Lymphocytes % (manual) 30 (10.0-50.0); Metamyelocytes % 1; Monocytes % (manual) 10 (0-12); Myelocytes % 1; Platelet Estimate Increased
[2023-07-05] MEDS ORDERED: fentaNYL CITRATE 100 MCG/2 ML VL ONE (13:15)
[2023-07-05] MEDS ORDERED: PROPOFOL 10 MG/ML 20 ML IV ONE (13:15)
[2023-07-05] MEDS ORDERED: ONDANSETRON HCL 4 MG/2 ML VIAL ONE (13:54)
[2023-07-05] MEDS ORDERED: DexAMETHasone SOD PHOS 10MG/1ML VIAL INJ ONE (13:54)
[2023-07-05] MEDS ORDERED: MEPERIDINE HCL (50 MG/ML) 1 ML VIAL ONE (14:11)
[2023-07-05] MEDS: ceFAZolin 1GM VL ONE (14:20)
[2023-07-05] MEDS ORDERED: ONDANSETRON HCL 4 MG/2 ML VIAL IV PRN (14:45)
[2023-07-05] MEDS ORDERED: HYDROmorphone HCL 2 MG/ML VL/or syr IV PRN (14:45)
[2023-07-05] MEDS ORDERED: MEPERIDINE HCL (25 MG/ML) 1ML VIAL IV PRN (14:45)
[2023-07-05] MEDS: MORPHINE SULFATE INJ 2 MG/ml SYRG IV PRN (21:53)
[2023-07-06 05:00] VITALS: BP 115/81; PULSE 95; RESP 19; TEMP 98.2; O2SAT 94
[2023-07-06 06:48] LABS: Red Blood Cells 4.03 10^6/uL (4.5-5.90); White Blood Cell 8.9 10^3/uL (4.4-10.8)
[2023-07-06 06:50] LABS: Hematocrit 36.1 % (41.0-53.0); Mean Corpuscular Hemoglobin 29.7 pg (28.0-32.0); Mean Corpuscular Hgb Conc. 33.1 g/dL (32.0-36.0); Mean Corpuscular Volume 89.7 fL (80.0-100.0); Red Cell Distribution Width 13.5 % (11.8-14.3)
[2023-07-06 06:55] LABS: Anion Gap 10 (5-15); Carbon Dioxide 21 mmol/L (20-30); Chloride 105 mmol/L (98-107); Potassium 4.4 mmol/L (3.5-5.1); Sodium 136 mmol/L (136-145)
[2023-07-06 07:01] LABS: BUN/Creatinine Ratio 12.2 (10.0-20.0); Blood Urea Nitrogen 9 mg/dL (9-23); Glucose 152 mg/dL (74-106)
[2023-07-06 07:15] LABS: Basophils % (manual) 0 (0.0-2.0); Blast Cells 0; Eosinophils % (manual) 0 (0-7); Promyelocytes % 0; Reactive Lymphocytes 0
[2023-07-06 08:34] LABS: Band Neutrophils % (manual) 4; Lymphocytes % (manual) 14 (10.0-50.0); Metamyelocytes % 2; Monocytes % (manual) 2 (0-12); Myelocytes % 2
[2023-07-06 08:35] LABS: Platelet Estimate Increased; RBC Morphology Normal
[2023-07-06 09:00] VITALS: BP 115/67; PULSE 89; RESP 20; TEMP 98.2; O2SAT 95
[2023-07-06 13:00] VITALS: BP 141/86; PULSE 91; RESP 20; TEMP 98.8; O2SAT 95
[2023-07-06] MEDS: HYDROmorphone HCL 2 MG/ML VL/or syr IV PRN (13:27)
[2023-07-06 17:00] VITALS: BP 147/88; PULSE 83; RESP 18; TEMP 98.2; O2SAT 95
[2023-07-06 20:00] VITALS: PULSE 102; PULSE 85; RESP 17; O2SAT 95
[2023-07-06 22:00] VITALS: BP 105/68; PULSE 85; RESP 18; TEMP 98; O2SAT 95
[2023-07-07] VITALS (8 sets, daily range): BP systolic 100–123; BP diastolic 60–80; PULSE 61–107; RESP 16–19; TEMP 36.8; O2SAT 93–97
[2023-07-07 05:44] LABS: Hemoglobin 12.4 g/dL (13.5-17.5); White Blood Cell 8.4 10^3/uL (4.4-10.8)
[2023-07-07 05:47] LABS: Hematocrit 37.1 % (41.0-53.0); Mean Corpuscular Hemoglobin 30.1 pg (28.0-32.0); Mean Corpuscular Hgb Conc. 33.4 g/dL (32.0-36.0); Mean Corpuscular Volume 89.9 fL (80.0-100.0); Red Blood Cells 4.12 10^6/uL (4.5-5.90); Red Cell Distribution Width 14.1 % (11.8-14.3)
[2023-07-07 05:55] LABS: Anion Gap 9 (5-15); Carbon Dioxide 21 mmol/L (20-30); Chloride 106 mmol/L (98-107); Potassium 4.3 mmol/L (3.5-5.1); Sodium 136 mmol/L (136-145)
[2023-07-07 05:56] LABS: Calcium 9.3 mg/dL (8.5-10.1)
[2023-07-07 05:57] LABS: Basophils % (manual) 0 (0.0-2.0); Blast Cells 0; Eosinophils % (manual) 0 (0-7); Promyelocytes % 0; Reactive Lymphocytes 0
[2023-07-07 06:01] LABS: BUN/Creatinine Ratio 11.7 (10.0-20.0); Blood Urea Nitrogen 9 mg/dL (9-23); Glucose 119 mg/dL (74-106)
[2023-07-07 07:44] LABS: Band Neutrophils % (manual) 13; Lymphocytes % (manual) 18 (10.0-50.0); Metamyelocytes % 1; Monocytes % (manual) 8 (0-12); Myelocytes % 1; Platelet Estimate Increased
[2023-07-08] VITALS (7 sets, daily range): BP systolic 111–132; BP diastolic 71–85; PULSE 71–116; RESP 16–20; TEMP 36.6; O2SAT 92–99
[2023-07-08 05:41] LABS: Hematocrit 38.6 % (41.0-53.0); Hemoglobin 12.9 g/dL (13.5-17.5); Mean Corpuscular Hemoglobin 29.7 pg (28.0-32.0); Mean Corpuscular Hgb Conc. 33.4 g/dL (32.0-36.0); Red Blood Cells 4.34 10^6/uL (4.5-5.90); Red Cell Distribution Width 13.6 % (11.8-14.3); White Blood Cell 7.9 10^3/uL (4.4-10.8)
[2023-07-08 05:51] LABS: Anion Gap 10 (5-15); Carbon Dioxide 21 mmol/L (20-30); Chloride 104 mmol/L (98-107); Potassium 4.1 mmol/L (3.5-5.1); Sodium 135 mmol/L (136-145)
[2023-07-08 05:53] LABS: Calcium 9.3 mg/dL (8.7-10.4)
[2023-07-08 05:57] LABS: Blood Urea Nitrogen 12 mg/dL (9-23); Glucose 135 mg/dL (74-106)
[2023-07-08 06:10] LABS: Basophils % (manual) 0 (0.0-2.0); Blast Cells 0; Promyelocytes % 0; Reactive Lymphocytes 0
[2023-07-08 07:32] LABS: Band Neutrophils % (manual) 4; Eosinophils % (manual) 2 (0-7); Metamyelocytes % 2; Monocytes % (manual) 7 (0-12); Myelocytes % 1
[2023-07-08 07:33] LABS: Lymphocytes % (manual) 19 (10.0-50.0)
[2023-07-08 07:35] LABS: Platelet Estimate Increased; RBC Morphology Normal
[2023-07-08] MEDS ORDERED: VANCOMYCIN PER PHARMACY 0 MG IV SCH (12:00)
[2023-07-08] MEDS: VANCOMYCIN 1GM/200ML 200 ML IV SCH (12:59)
[2023-07-08] MEDS: HYDROcodone-ACET 10/325MG TAB PO PRN ×2 (15:39→22:40)
[2023-07-09] VITALS (7 sets, daily range): BP systolic 106–120; BP diastolic 67–85; PULSE 84–108; RESP 16–17; TEMP 97.9–98.7; O2SAT 94–98
[2023-07-09 07:04] LABS: Basophils # (auto) 0.1 10 ^3/uL (0-0.2); Eosinophils # (auto) 0.1 10 ^3/uL (0-0.8); Hemoglobin 13.1 g/dL (13.5-17.5); Monocytes # (auto) 0.6 10 ^3/uL (0-1.3)
[2023-07-09 07:07] LABS: Eosinophils % (auto) 1.7 % (0.0-7.0); Hematocrit 38.7 % (41.0-53.0); Lymphocytes # (auto) 1.6 10 ^3/uL (0.4-5.4); Lymphocytes % (auto) 21.9 % (10.0-50.0); Mean Corpuscular Hemoglobin 29.8 pg (28.0-32.0); Mean Corpuscular Hgb Conc. 33.8 g/dL (32.0-36.0); Mean Corpuscular Volume 88.3 fL (80.0-100.0); Monocytes % (auto) 8.5 % (0.0-12.0); Neutrophils # (auto) 4.9 10 ^3/uL (1.6-8.6); Neutrophils % (auto) 66.9 % (37.0-80.0); Red Blood Cells 4.38 10^6/uL (4.5-5.90); White Blood Cell 7.4 10^3/uL (4.4-10.8)
[2023-07-09 07:19] LABS: Anion Gap 8 (5-15); Carbon Dioxide 22 mmol/L (20-30); Chloride 105 mmol/L (98-107); Potassium 4.1 mmol/L (3.5-5.1); Sodium 135 mmol/L (136-145)
[2023-07-09 07:21] LABS: Calcium 9.5 mg/dL (8.5-10.1)
[2023-07-09 07:25] LABS: BUN/Creatinine Ratio 13.9 (10.0-20.0); Blood Urea Nitrogen 10 mg/dL (9-23); Glucose 131 mg/dL (74-106)
[2023-07-09 07:40] LABS: Basophils % (manual) 0 (0.0-2.0); Blast Cells 0; Promyelocytes % 0; Reactive Lymphocytes 0
[2023-07-09 08:23] LABS: Band Neutrophils % (manual) 6; Eosinophils % (manual) 3 (0-7); Lymphocytes % (manual) 22 (10.0-50.0); Metamyelocytes % 2; Monocytes % (manual) 9 (0-12); Myelocytes % 1
[2023-07-09 08:26] LABS: Platelet Estimate Increased; RBC Morphology Normal
[2023-07-09 08:37] LABS: Nucleated Red Blood Cells % 0.2 %
[2023-07-10] VITALS (7 sets, daily range): BP systolic 100–127; BP diastolic 63–71; PULSE 67–102; RESP 15–18; TEMP 97.8–98.1; O2SAT 91–97
[2023-07-10] MEDS: AMPICILLIN & SULBACTAM SODIUM 3 GM in SODIUM CHL 0.9% 100 ML IV SCH (01:01)
[2023-07-10 07:34] LABS: Hemoglobin 13.7 g/dL (13.5-17.5)
[2023-07-10 07:39] LABS: Hematocrit 40.8 % (41.0-53.0); Mean Corpuscular Hgb Conc. 33.6 g/dL (32.0-36.0); Mean Corpuscular Volume 89.5 fL (80.0-100.0); Red Blood Cells 4.56 10^6/uL (4.5-5.90); White Blood Cell 6.8 10^3/uL (4.4-10.8)
[2023-07-10 07:58] LABS: Anion Gap 9 (5-15); Carbon Dioxide 21 mmol/L (20-30); Chloride 106 mmol/L (98-107); Potassium 4.3 mmol/L (3.5-5.1); Sodium 136 mmol/L (136-145)
[2023-07-10 07:59] LABS: Calcium 9.8 mg/dL (8.5-10.1)
[2023-07-10 08:04] LABS: Blood Urea Nitrogen 7 mg/dL (9-23); Glucose 116 mg/dL (74-106)
[2023-07-10 08:09] LABS: Basophils % (manual) 0 (0.0-2.0); Promyelocytes % 0
[2023-07-10 08:10] LABS: Blast Cells 0
[2023-07-10 10:07] LABS: Band Neutrophils % (manual) 9; Eosinophils % (manual) 2 (0-7); Lymphocytes % (manual) 21 (10.0-50.0); Metamyelocytes % 1; Monocytes % (manual) 8 (0-12); Myelocytes % 1; Platelet Estimate Increased; RBC Morphology Normal; Reactive Lymphocytes 2
[2023-07-11] VITALS (7 sets, daily range): BP systolic 111–134; BP diastolic 73–80; PULSE 84–99; RESP 16–20; TEMP 97.7–98.1; O2SAT 92–98
[2023-07-11 07:27] LABS: Hematocrit 36.6 % (41.0-53.0); Hemoglobin 12.4 g/dL (13.5-17.5); Mean Corpuscular Hemoglobin 30.1 pg (28.0-32.0); Mean Corpuscular Hgb Conc. 33.9 g/dL (32.0-36.0); Mean Corpuscular Volume 88.9 fL (80.0-100.0); Red Blood Cells 4.12 10^6/uL (4.5-5.90); Red Cell Distribution Width 14.3 % (11.8-14.3); White Blood Cell 5.2 10^3/uL (4.4-10.8)
[2023-07-11 07:32] LABS: Basophils % (manual) 0 (0.0-2.0); Blast Cells 0; Myelocytes % 0; Promyelocytes % 0; Reactive Lymphocytes 0
[2023-07-11 07:43] LABS: Anion Gap 9 (5-15); Calcium 9.4 mg/dL (8.5-10.1); Carbon Dioxide 21 mmol/L (20-30); Chloride 106 mmol/L (98-107); Potassium 4.1 mmol/L (3.5-5.1); Sodium 136 mmol/L (136-145)
[2023-07-11 07:49] LABS: BUN/Creatinine Ratio 10.8 (10.0-20.0); Blood Urea Nitrogen 8 mg/dL (9-23); Glucose 114 mg/dL (74-106)
[2023-07-11 12:35] LABS: Band Neutrophils % (manual) 5; Eosinophils % (manual) 1 (0-7); Lymphocytes % (manual) 23 (10.0-50.0); Metamyelocytes % 1; Monocytes % (manual) 10 (0-12); Platelet Estimate Increased
[2023-07-12 05:00] VITALS: BP 128/75; PULSE 84; RESP 19; TEMP 97.5; O2SAT 97
[2023-07-12 06:59] LABS: Calcium 9.5 mg/dL (8.5-10.1); Chloride 106 mmol/L (98-107); Hemoglobin 12.4 g/dL (13.5-17.5); Mean Corpuscular Hemoglobin 29.9 pg (28.0-32.0); Mean Corpuscular Hgb Conc. 33.6 g/dL (32.0-36.0); Mean Corpuscular Volume 88.8 fL (80.0-100.0); Red Blood Cells 4.16 10^6/uL (4.5-5.90); Red Cell Distribution Width 14.1 % (11.8-14.3); Sodium 137 mmol/L (136-145); White Blood Cell 5.7 10^3/uL (4.4-10.8)
[2023-07-12 07:00] LABS: Anion Gap 7 (5-15); Carbon Dioxide 24 mmol/L (20-30)
[2023-07-12 07:06] LABS: BUN/Creatinine Ratio 11.3 (10.0-20.0); Blood Urea Nitrogen 8 mg/dL (9-23); Glucose 107 mg/dL (74-106)
[2023-07-12 07:10] LABS: Band Neutrophils % (manual) 0; Basophils % (manual) 0 (0.0-2.0); Blast Cells 0; Metamyelocytes % 0; Promyelocytes % 0; Reactive Lymphocytes 0
[2023-07-12 09:00] VITALS: BP 111/74; PULSE 77; RESP 20; TEMP 97.6; O2SAT 95
[2023-07-12] MEDS ORDERED: HYDR-4798 PO (11:16)
[2023-07-12] MEDS ORDERED: CLIN300C70 PO (11:16)
[2023-07-12] MEDS ORDERED: AUG875T PO (11:16)
[2023-07-12 12:41] VITALS: TEMP 36.4
[2023-07-12 12:45] VITALS: BP 127/81; PULSE 80; RESP 20; TEMP 97.9; O2SAT 94
[2023-07-12 12:59] LABS: Eosinophils % (manual) 5 (0-7); Lymphocytes % (manual) 28 (10.0-50.0); Monocytes % (manual) 10 (0-12); Myelocytes % 2; Platelet Estimate Adequate
== END 2023-07-12 14:45 | disposition home or self-care (01) | DRG 710 ==
LOC: ER 18:02 → TELE 23:25 → TELE-WESTW 06-25 01:56
PROVIDERS: ADMIT Nurse Practitioner Family; ATTEND Internal Medicine Pulmonary Disease
PROC: 0D9Q0ZZ Drainage of Anus, Open Approach (ICD-10-PCS; 2023-06-27)
PROC: 0J9C0ZZ Drainage of Pelvic Region Subcutaneous Tissue and Fascia, Open Approach (ICD-10-PCS; 2023-06-27)
PROC: 0V950ZZ Drainage of Scrotum, Open Approach (ICD-10-PCS; principal; 2023-06-27 17:30)
PROC: 0V950ZZ Drainage of Scrotum, Open Approach (ICD-10-PCS; 2023-07-05)
PROC: 0HD6XZZ Extraction of Back Skin, External Approach (ICD-10-PCS; 2023-07-05)
PROC: 5A09357 Assistance with Respiratory Ventilation, Less than 24 Consecutive Hours, Continuous Positive Airway Pressure (ICD-10-PCS; 2023-07-05)
DX: A41.1 Sepsis due to other specified staphylococcus (principal); M72.6 Necrotizing fasciitis; E11.10 Type 2 diabetes mellitus with ketoacidosis without coma; L02.215 Cutaneous abscess of perineum; K61.0 Anal abscess; K61.39 Other ischiorectal abscess; R65.20 Severe sepsis without septic shock; L03.315 Cellulitis of perineum; K40.90 Unilateral inguinal hernia, without obstruction or gangrene, not specified as recurrent; L02.214 Cutaneous abscess of groin; N45.3 Epididymo-orchitis; I10 Essential (primary) hypertension; E66.01 Morbid (severe) obesity due to excess calories; Z68.32 Body mass index [BMI] 32.0-32.9, adult; Z82.49 Family history of ischemic heart disease and other diseases of the circulatory system; Z83.3 Family history of diabetes mellitus
CPT/HCPCS: 36415; 36600; 71045; 72170; 74176; 76870; 80048; 80053; 80202; 81001; 82010; 82805; 82962; 83605; 83735; 85007; 85025; 85027; 85610; 85730; 86850; 86900; 86901; 87040; 87070; 87075; 87077; 87081; 87086; 87186; 87205; 93005; 99291; G0378; J0690; J1100; J1815; J2250; J2405; J2543; J2704; J3480; J3490